=== PATIENT | female | born 1995 | race Two or more races ===

== ENCOUNTER 2017-02-25 01:38 | Emergency (ER) | payer SELFPAY ==
[~2017-02-25] VITALS: Ht 154.9 cm; Wt 47.2 kg
--- NOTE | 2017-02-25 01:48 | NUR ---
[facility] RA78. PER EMS, FRIEND CALLED 911 AFTER PT HAD "3 DRINKS" RESPONSIVE TO PAINFUL STIMULI. RR EVEN AND UNLABORED. NO SOB NOTED. NAD NOTED. NO NVD AT THIS TIME . PT GOWNED AND PLACED ON MONITOR WAITING FOR MD OSULLIVAN.
--- NOTE | 2017-02-25 02:00 | NUR ---
CALLED FOR BLOOD DRAW
--- NOTE | 2017-02-25 02:04 | NUR ---
LAB AT BEDSIDE FOR BLOOD DRAW.
--- NOTE | 2017-02-25 05:12 | NUR ---
PT AOX4. DR. SOLIS SPEAKING TO PT AT BEDSIDE
--- NOTE | 2017-02-25 05:40 | NUR ---
PT WITH STEADY GAIT. AWARE
--- NOTE | 2017-02-25 05:46 | NUR ---
IV removed. Catheter intact and site benign. Pressure and 4x4 applied to site. No bleeding noted. Patient discharged to home in stable condition. Written and verbal after care instructions given. Patient verbalizes understanding of instruction. ambulatory with a steady gait. instructed not to drive. pt verbalize understanding. Addendum: 02/25/17 at 0548 by KATHY pt accompanied by rob
[2017-02-25 05:47] VITALS: BP 108/78
== END 2017-02-25 05:48 | disposition home or self-care (01) ==
LOC: ER 01:43
DX: F10.129 Alcohol abuse with intoxication, unspecified (principal)
CPT/HCPCS: 36415; 99284; A4606; G0480; Z7610